=== PATIENT | male | born 1970 | race African-American/Black ===

== ENCOUNTER 2022-04-26 18:58 | Emergency (ER) | payer OTHER, SELFPAY ==
--- NOTE | ~2022-04-26 | CT_ITS ---
Non-contrast Head CT History: Headache Technique: Axial non-contrast imaging of the brain was performed. Dose reduction technique was used on this scan by utilizing automated exposure control and iterative reconstruction technique. The dose -length product (DLP) was 605.33 mGy-cm. Findings: There is no evidence of intracranial hemorrhage, mass lesion, or acute infarct. Brain par enchyma appears normal. The ventricles and subarachnoid spaces are normal in size. The calvarium ap pears normal. The visualized paranasal sinuses and mastoid air cells are clear. Impression: No significant abnormality seen. Reviewed, dictated and finalized at location . [employer] Impression: No significant abnormality seen.
[2022-04-26 19:12] VITALS: BP 137/101; PULSE 104; RESP 16; TEMP 36.9; O2SAT 97
--- NOTE | 2022-04-26 20:28 | ED.HA ---
HPI - Headache General Chief Complaint: Headache Stated Complaint: bumps on arm Time Seen by Provider: 04/26/22 20:16 Source: patient Mode of arrival: ambulatory Limitations: no limitations History of Present Illness HPI Narrative: 51 years old -[place] male drove himself to the emergency room because of feeling like somebody standing on top of his head since yesterday a.m. He denies any fever, chills, nausea, vomiting, chest pain, shortness of breath or respiratory symptoms. Patient is telling me that he took hot shower then went outside with temperature of 24 degree. Subsequently developed the headache. Patient is bold. Had a thin hat at that time. Patient did not take any pain medication since yesterday morning. He denies any focal neurodeficit, any aggravating or relieving factors. Patient reported having a pumps and his upper back right upper extremity for the last 2 days Related Data Allergies Allergy/AdvReac Type Severity Reaction Status Date / Time No Known Allergies Allergy Verified 04/26/22 20:42 Review of Systems Review of Systems: All systems reviewed & are unremarkable except as noted in HPI and below Exam Narrative: General appearance: Well-developed, well-nourished Skin: Normal color, blisterlike rash on the right side of the upper back also right upper extremity posteriorly looks like viral infection, shingles is a possibility. Head: Normocephalic, nontraumatic Eyes: Clear conjunctiva ENT: Oropharynx normal, ears normal, nose normal Neck: Supple, nontender Chest and respiratory: Airway patent, no respiratory distress, no accessory muscle use Heart: Regular rate/rhythm Abdomen: Soft, nontender, no organomegaly, quiet bowel sounds Vascular: Normal peripheral pulses, normal capillary refill. Musculoskeletal: Normal range of motion, nontender back Neurologic: Alert and oriented ?3, [employer] is normal as tested, no gross motor deficit Course Reevaluation(s) Reevaluation #1: Patient feeling much better after having Tylenol and ibuprofen orally. Date: 04/26/22 Time: 21:25 Vital Signs Vital signs: Vital Signs Temperature 36.9 C 04/26/22 19:12 Pulse Rate 104 H 04/26/22 19:12 Respiratory Rate 16 04/26/22 19:12 Blood Pressure 137/101 H 04/26/22 19:12 Pulse Oximetry 97 04/26/22 19:12 Oxygen Delivery Room Air 04/26/22 19:12 Temperature 36.9 C 04/26/22 19:12 Pulse Rate 104 H 04/26/22 19:12 Respiratory Rate 16 04/26/22 19:12 Blood Pressure 137/101 H 04/26/22 19:12 Pulse Oximetry 97 04/26/22 19:12 Oxygen Delivery Room Air 04/26/22 19:12 MDM - Headache MDM Narrative Medical decision making narrative: Patient presents with a headache like somebody standing on top of his head, no aggravating or relieving factors, no fever or chills or nausea or vomiting. Physical examination showed multiple blisters on the right side of upper back and right upper extremity consistent with shingles. Patient headache could be secondary to shingles. Labs ordered including CBC and CMP showed no abnormalities. CT head ordered and showed no acute abnormalities. Patient feeling much better after Tylenol and ibuprofen orally. I plan to discharge him on Valtrex and to take Tylenol, ibuprofen as needed [id number] the pt was discharged to home.the pt,s condition upon discharge was fair,education was provided to the pt in reference to the final impression,discharge study results,treatment,prognosis and need for follow up . Differential Diagnosis Differential diagnosis: Likely tension headache, headache and other (Shingles related headache) Imaging Data Radiologist's impression: Impressions Head CT
--- NOTE | 2022-04-26 20:34 | PC.NURSE ---
Patient taken to CT via stretcher at this time.
[2022-04-26] MEDS: IBUPROFEN 600 MG TABLET PO (20:43)
[2022-04-26] MEDS: ACETAMINOPHEN 325 MG TABLET 650 MG PO (20:44)
[2022-04-26 21:03] LABS: Basophils Absolute Auto 0.1 K/mm3 (0.0-0.1); Basophils Percent Auto 0.7 % (0.2-1.2); Eosinophils Percent Auto 0.4 % (0-4.4); Hematocrit 44.2 % (42.0-52.0); Hemoglobin 15.6 g/dL (14.0-18.0); Immature Granulocyte Absolute 0.02 K/mm3 (0.00-0.031); Immature Granulocyte Percent A 0.2 % (0-0.5); Lymphocytes Absolute Auto 2.63 K/mm3 (0.9-3.2); Lymphocytes Percent Auto 30.9 % (18.3-44.2); Mean Corpuscular HGB Conc 35.3 g/dl (32-36); Mean Corpuscular Hemoglobin 32.3 pg (26-34); Mean Corpuscular Volume 91.5 fl (80-100); Mean Platelet Volume 8.6 fl (7.4-10.4); Monocytes Percent Auto 12.1 % (2.6-8.5); Neutrophils Absolute Auto 4.7 K/mm3 (1.3-6.7); Neutrophils Percent Auto 55.7 % (45.5-73.1); Platelet Count Result 277 k/mm3 (150-375); Red Blood Count 4.83 M/mm3 (4.6-6.20); Red Cell Distribution Width 13.4 % (11.5-14.5); White Blood Count 8.5 K/mm3 (4.5-10.0)
[2022-04-26 21:12] LABS: Alanine Aminotransferase 17 U/L (6-50); Albumin Level 4.2 g/dL (3.5-5.1); Alkaline Phosphatase 108 U/L (38-126); Anion Gap 5 mmol/L (8-16); Aspartate Amino Transferase 26 U/L (17-59); Bilirubin,Total 0.8 mg/dL (0.2-1.3); Blood Urea Nitrogen 7 mg/dL (9-20); Carbon Dioxide 29 mmol/L (22-30); Chloride 102 mmol/L (98-107); Estimated CRCL calculation 73 ml/min; Estimated Glomerular Filt Rate > 60; Glucose 98 mg/dL (65-110); Potassium 3.8 mmol/L (3.4-5.0); Sodium 136 mmol/L (137-145)
[2022-04-26 21:36] VITALS: BP 145/95; PULSE 80; RESP 20; O2SAT 99
== END 2022-04-26 21:45 | disposition home or self-care (01) ==
PROVIDERS: Emergency Provider Emergency Medicine; PCP Internal Medicine
DX: R51.9 Headache, unspecified (principal); B02.9 Zoster without complications
CPT/HCPCS: 36415; 70450; 80053; 85025; 99283; 99284; A9270